=== PATIENT | female | born 1995 | race Caucasian/White ===

== ENCOUNTER 2016-08-31 19:06 | Emergency (ER) | payer OTHER ==
--- NOTE | 2016-08-31 21:06 | ER Document Report ---
HPI - HPI Pain Level: 4 Notes: Patient is a 20-year-old female presents to the ED complaining of right great toe pain status post crush injury today while at work. Patient states that she dropped a case of red bull on the right great toe this afternoon. Patient states she has noticed swelling and bruising to the area along with pain. Patient states that she does have difficulty with flexion of that toe, but continues to have sensation and feeling in the toe itself. The pain does not radiate. She has not had anything for discomfort. Patient still able to ambulate but does favor that side by limping. Denies any fever, chest pain, palpitations, shortness breath, wheezing, shortness of breath, abdominal pain, nausea/vomiting/diarrhea, dysuria, abscess, red streaks, purulent discharge. - ROS Notes: REVIEW OF SYSTEMS: CONSTITUTIONAL : Denies fever, chills, or sweats. Denies recent illness. CARDIOVASCULAR: Denies chest pain. Denies palpitations or racing or irregular heart beat. Denies ankle edema. RESPIRATORY: Denies cough, cold, or chest congestion. Denies shortness of breath, difficulty breathing, or wheezing. GASTROINTESTINAL: Denies abdominal pain or distention. Denies nausea, vomiting , or diarrhea. Denies blood in vomitus, stools, or per rectum. Denies black, tarry stools. Denies constipation. GENITOURINARY: Denies difficulty urinating, painful urination, burning, frequency, blood in urine, or discharge. MUSCULOSKELETAL: see hpi SKIN: Denies rash, lesions or sores. NEUROLOGICAL: Denies confusion or altered mental status. Denies passing out or loss of consciousness. Denies dizziness or lightheadedness. Denies headache. Denies weakness or paralysis or loss of use of either side. Denies problems with gait or speech. Denies sensory loss, numbness, or tingling. ALL OTHER SYSTEMS REVIEWED AND NEGATIVE. Dictation was performed using [employer] voice recognition software - REPRODUCTIVE LMP: 08-27-16 - DERM Skin Color: Normal Past Medical History - Social History Smoking Status: Never Smoker - There is still seems pretty straightforward simple x-rays reviewed workup ringlike Family History: Reviewed & Not Pertinent Patient has suicidal ideation: No Patient has homicidal ideation: No Renal/ Medical History: Denies: Hx Peritoneal Dialysis - Immunizations Hx Diphtheria, Pertussis, Tetanus Vaccination: Yes - not in last 5 years Vertical Provider Document - CONSTITUTIONAL Agree With Documented VS: Yes Notes: PHYSICAL EXAMINATION: GENERAL: Well-appearing, well-nourished and in no acute distress. LUNGS: Breath sounds clear to auscultation bilaterally and equal. No wheezes rales or rhonchi. HEART: Regular rate and rhythm without murmurs, rubs, gallops. Musculoskeletal: Left foot: FROM to passive/active. Strength 5+/5. Non-tender to palp. 2+ pulses. Rt great toe: + ecchymosis, inflammation b/w the MTP and IP joint. + tenderness to palp. LROM to flexion. Sensation intact. Extremities: No cyanosis, clubbing, or edema b/l. Peripheral pulses 2+. Capillary refill less than 3 seconds. NEUROLOGICAL: Normal sensory, motor exams PSYCH: Normal mood, normal affect. SKIN: Warm, Dry, normal turgor, no rashes or lesions noted. - INFECTION CONTROL TRAVEL OUTSIDE OF THE [place] IN LAST 30 DAYS: No - RESPIRATORY O2 Sat by Pulse Oximetry: 95 Course - Re-evaluation Re-evalutation: 08/31/16 21:20 Patient is an afebrile, well-hydrated, 20-year-old female presents the ED with a right great toe contusion status post crush injury. Vitals are stable. PE otherwise unremarkable. X-ray did not show any acute fracture dislocation. Recommend conservative measures for symptoms. Recheck with your PCM in 2-3 days. Consider consult orthopedic/podiatry. Return to the ED with any worsening/concerning symptoms otherwise as reviewed in discharge. Patient is in agreement. Low suspicion for a septic joint, cellulitis, gout, fracture. - Vital Signs Vital signs: Temp Pulse Resp BP Pulse Ox 98.5 F 83 18 127/82 H 95 08/31/16 19:20 08/31/16 19:20 08/31/16 19:20 08/31/16 19:20 08/31/16 19:20 Discharge - Discharge Clinical Impression: Pain of left great toe Condition: Stable Disposition: HOME, SELF-CARE Instructions: Ice & Elevation ([facility]) Additional Instructions: Rest, Ice, Compression, Elevation Tylenol/ibuprofen as needed Light stretches daily Strength exercises as able Moist heat and massage may help F/u with your PCP in 2-3 days for a recheck Consider consult(s) with Orthopedics/podiatry/physical therapy for ongoing/ worsening symptoms Return to the ED with any worsening pain, swelling, numbness/tingling, muscle weakness, development of fever, or any other worsening/concerning symptoms otherwise as needed. Forms: Elevated Blood Pressure Referrals: [facility] [Provider Group] - Follow up as needed
--- NOTE | 2016-08-31 21:14 | RADIOLOGY REPORT (SQ) ---
EXAM DESCRIPTION: TOE RIGHT COMPLETED DATE/TIME: 08/31/2016 9:05 pm REASON FOR STUDY: crush injury rt great toe, b/w MCP/IP jt COMPARISON: None. NUMBER OF VIEWS: Three views. TECHNIQUE: AP, lateral, and oblique images acquired of the right first toe. LIMITATIONS: None. FINDINGS: MINERALIZATION: Normal. BONES: No acute fracture or dislocation. No worrisome bone lesions. JOINTS: No effusions. SOFT TISSUES: No soft tissue swelling. No foreign body. OTHER: No other significant finding. IMPRESSION: NEGATIVE STUDY OF THE RIGHT TOE. NO RADIOGRAPHIC EVIDENCE OF ACUTE INJURY. COMMENT: SITE OF TRAUMA/COMPLAINT MARKED/STAMP COMPLETED: YES. TECHNICAL DOCUMENTATION: JOB ID: [id number] [employer]- All Rights Reserved
[2016-08-31 21:44] VITALS: BP 119/69
== END 2016-08-31 21:42 | disposition home or self-care (01) ==
LOC: ER 19:06
DX: S99.921A Unspecified injury of right foot, initial encounter (principal); W20.8XXA Other cause of strike by thrown, projected or falling object, initial encounter; Y99.0 Civilian activity done for income or pay
CPT/HCPCS: 99283

== ENCOUNTER 2018-06-06 12:10 | Inpatient (IN) | payer MEDICAID ==
[2018-06-06 12:48] LABS: APPEARANCE,URINE TURBID; BILIRUBIN,URINE NEGATIVE (NEGATIVE); COLOR,URINE YELLOW; GLUCOSE, URINE NEGATIVE (NEGATIVE); KETONES,URINE TRACE mg/dL (NEGATIVE); LEUKOCYTE ESTERASE,URINE MODERATE (NEGATIVE); NITRITE,URINE NEGATIVE (NEGATIVE); PROTEIN,URINE 100 mg/dL (NEGATIVE); URINE SPECIFIC GRAVITY 1.012; UROBILINOGEN,URINE NEGATIVE mg/dL (<2.0)
[2018-06-06 13:06] LABS: URINE AMPHETAMINES SCREEN NEGATIVE; URINE BARBITURATES SCREEN NEGATIVE; URINE BENZODIAZEPINES SCREEN NEGATIVE; URINE COCAINE SCREEN NEGATIVE; URINE MARIJUANA (THC) SCREEN NEGATIVE; URINE METHADONE SCREEN NEGATIVE; URINE PHENCYCLIDINE SCREEN NEGATIVE
[2018-06-06 13:44] LABS: ABSOLUTE LYMPHOCYTES (AUTO) 1.7 10^3/uL (0.5-4.7); ABSOLUTE MONOCYTES (AUTO) 0.8 10^3/uL (0.1-1.4); BASOPHILS % (AUTO) 0.1 % (0-2); EOSINOPHILS % (AUTO) 0.1 % (0-6); HEMATOCRIT 40.9 % (36.0-47.0); HEMOGLOBIN 13.9 g/dL (12.0-15.5); LYMPHOCYTES % (AUTO) 10.7 % (13-45); MEAN CORPUSCULAR HGB CONC 33.9 g/dL (32.0-36.0); MEAN CORPUSCULAR VOLUME 91 fl (80-97); PLATELET COUNT 218 10^3/uL (150-450); RED BLOOD COUNT 4.47 10^6/uL (3.72-5.28); RED CELL DISTRIBUTION WIDTH 14.6 % (11.5-14.0); SEGMENTED NEUTROPHILS % (AUTO) 84.1 % (42-78); TOTAL CELLS COUNTED % (AUTO) 100 %; WHITE BLOOD COUNT 15.5 10^3/uL (4.0-10.5)
[2018-06-06] MEDS ORDERED: OXYTOCIN 10 UNIT/ML VIAL ONE (14:13)
[2018-06-06] MEDS ORDERED: MISOPROSTOL 0.2 MG TABLET ONE (14:13)
[2018-06-06] MEDS ORDERED: LIDOCAINE 1.5%/EPINEPHRINE INJ 5 ML AMP ONE (14:14)
[2018-06-06] MEDS ORDERED: FENTANYL/BUPIVACAINE/NS/PF 300 MCG/150 ML RTUINJ EPI ONE (14:14)
[2018-06-06] MEDS ORDERED: EPHEDRINE SULFATE INJ 50 MG/1 ML AMPULE ONE (14:14)
[2018-06-06] MEDS ORDERED: LIDOCAINE 1% INJ-PF (10 MG/ML) 30 ML SDV ONE (14:15)
[2018-06-06] MEDS ORDERED: BUPIVACAINE HCL 0.25 % INJ/PF (2.5 MG/1 ML) 30 ML VIAL ONE (14:15)
[2018-06-06] MEDS ORDERED: OXYTOCIN/NORMAL SALINE 20 UNIT/1,000 ML RTUINJ ONE (14:15)
[2018-06-06] MEDS ORDERED: NALBUPHINE HCL INJ 10 MG/1 ML AMPULE INJ ONE (14:53)
[2018-06-06] MEDS ORDERED: NALBUPHINE HCL INJ 10 MG/1 ML AMPULE ONE (14:54)
--- NOTE | 2018-06-06 15:54 | Admission Physical ---
Datetime Report Generated by CPN: 06/06/2018 15:54 CURRENT ADMISSION Chief Complaint: Uterine Contractions Indication for Induction: Not Applicable Admit Impression : Term, Intrauterine Admit Plan: Initiate Labor Protocol ALLERGIES Medication Allergies: Unknown Medication Allergies: No Known Allergies (06/06/2018) Latex: No Latex Allergies Food Allergies: N/A OBSTETRICAL HISTORY EDC: 06/19/2018 00:00 : 1 Para: 0 Term: 0 : 0 SAB: 0 IAB: 0 Livin Gestational Diabetes: No Rh Sensitization: No Incompetent Cervix: No TAMARA: No Infertility: No ART Treatment: No Uterine Anomaly: No IUGR: No Hx Previous C/S: No Macrosomia: No Hx Loss/Stillborn: No PIH: No Hx : No Placenta Previa/Abruption: No Depression/PP Depression: No PTL/PROM: No Post Hemorrhage: No Current Procedures: Ultrasound Obstetrical History Comments: G1 - Current SEE RECORDS Alcohol: No Marijuana : No Cocaine: No Other Illicit Drugs: No Cigarettes: Never Smoker. [id number] MEDICAL HISTORY Diabetes: No Blood Transfusion: No Pulmonary Disease (Asthma, TB): No Breast Disease: No Hypertension: No Bottom Stainer Surgery: No Heart Disease: No Hosp/Surgery: No Autoimmune Disorder: No Anesthetic Complications: No Kidney Disease: No Abnormal Pap Smear: No Neuro/Epilepsy: No Psychiatric Disorders: No Other Medical Diseases: No Hepatitis/Liver Disease: No Significant Family History: No Varicosities/Phlebitis: No Trauma/Violence : No Thyroid Dysfunction: No INFECTIOUS HISTORY Gonorrhea: No Genital Herpes: No Chlamydia: Yes Tuberculosis: No Syphilis: No Hepatitis: No HIV/AIDS Exposure: No Rash or Viral Illness: No HPV: No Infectious History Comments: Chlamydia in 2018 PHYSICAL EXAM General: Normal HEENT: Normal Neurologic: Normal Thyroid: Normal Heart: Normal Lungs: Normal Breast: Deferred Back: Normal Abdomen: Normal Genitourinary Exam: Normal Extremities: Normal DTRs: Normal Pelvic Type: Adequate FETUS A EGA: 38.1 PLANS FOR LABOR AND DELIVERY Labor and Delivery: None Pain Management: Natural; Epidural Feeding Preference: Breast Benefit of Breast Feed Discussed: Yes Circumcision: Yes INFORMED CONSENT Signature: with User ID: [email or web address]
[2018-06-06] MEDS ORDERED: PROMETHAZINE HCL 25 MG SUPP.RECT PR PRN (17:10)
[2018-06-06] MEDS ORDERED: ACETAMINOPHEN 650 MG SUPP.RECT PR PRN (17:10)
[2018-06-06] MEDS ORDERED: PROMETHAZINE HCL INJ 25 MG/1 ML VIAL IV PRN (17:10)
[2018-06-06] MEDS ORDERED: DIPH/PERTUSS(ACELL)/TETANUS VAC/PF 0.5 ML SYR (>=10YO) IM PRN (17:10)
[2018-06-06] MEDS ORDERED: ZOLPIDEM TARTRATE 5 MG TABLET PO PRN (17:10)
[2018-06-06] MEDS ORDERED: MAGNESIUM HYDROXIDE SUSP 30 ML UDCUP PO PRN (17:10)
[2018-06-06] MEDS ORDERED: OXYTOCIN/NORMAL SALINE 20 UNIT/1,000 ML RTUINJ IV PRN (17:10)
[2018-06-06] MEDS ORDERED: ACETAMINOPHEN WITH CODEINE #3 TABLET PO PRN (17:10)
[2018-06-06] MEDS ORDERED: DIPHENHYDRAMINE HCL 25 MG CAPSULE PO PRN (17:10)
[2018-06-06] MEDS ORDERED: BENZOCAINE/MENTHOL AEROSOL SPRAY 56 ML TOP PRN (17:10)
[2018-06-06] MEDS ORDERED: GLYCERIN/WITCH HAZEL LEAF 1 EACH MED..PAD TP PRN (17:10)
[2018-06-06] MEDS ORDERED: NA PHOS,M-B/NA PHOS,DI-BA (ADULT) 133 ML ENEMA PR PRN (17:10)
[2018-06-06] MEDS ORDERED: PSEUDOEPHEDRINE HCL 30 MG TABLET PO PRN (17:10)
[2018-06-06] MEDS ORDERED: MEASLES,MUMPS&RUBELLA VACC/PF 0.5 ML VIAL SUBCUT PRN (17:10)
[2018-06-06] MEDS ORDERED: DIBUCAINE 1% OINTMENT 56 GM TP PRN (17:10)
[2018-06-06] MEDS ORDERED: PROMETHAZINE HCL 25 MG TABLET PO PRN (17:10)
[2018-06-06] MEDS ORDERED: IBUPROFEN 800 MG TABLET ONE (19:25)
--- NOTE | 2018-06-06 19:39 | Warning Signs in Babies ---
VOD Warning Signs Datetime Report Generated by [facility]: 06/06/2018 19:38 VOD#608 -Warning Signs in Babies: Viewed with Parent(s)/Family (06/06/2018 19:33:Guerda Albarran RN)
--- NOTE | 2018-06-06 19:43 | Delivery Summary ---
Del Sum A-C Datetime Report Generated by CPN: 06/06/2018 19:42 DELIVERY PERSONNEL DELIVERY PERSONNEL: [id number] Delivery Doctor:: Ismael Fan MD Labor and Delivery Nurse:: Ruy Menjivar RN Emissions Testing And Repair Technician:: Danae Olmos RN Nursery Nurse:: Elda Pisano RN Materials Engineer/ANALYSIS OR RESEARCH SAFETY INSPECTOR: [facility] Additional Personnel: : Feli Rich RN MATERNAL INFORMATION Delivery Anesthesia: Epidural Medications After Delivery: Pitocin Bolus-Please Comment; Pitocin Drip 20 Units/1000ml NSS Maternal Complications: Precipitous Labor (<3hrs) LABOR SUMMARY EDC: 06/19/2018 00:00 No. Babies in Womb: 1 Attempted: No Labor Anesthesia: Epidural LABOR INFORMATION Reason for Induction: Not Applicable Onset of Labor: 06/06/2018 14:03 Complete Dilatation: 06/06/2018 16:30 Oxytocin: N/A Group B Beta Strep: Negative MEMBRANES Membranes Rupture Method: Spontaneous Rupture of Membranes: 06/06/2018 06:00 Length of Rupture (hr): 11.00 Amniotic Fluid Color: Clear Amniotic Fluid Amount: Small Amniotic Fluid Odor: Normal STAGES OF LABOR Stage 1 hr: 2 Stage 1 min: 27 Stage 2 hr: 0 Stage 2 min: 30 Stage 3 hr: 0 Stage 3 min: 5 Total Time in Labor hr: 3 Total Time in Labor min: 2 VAGINAL DELIVERY Episiotomy: None Laceration #1: None Laceration Extension #1: N/A Laceration Repair: Not Applicable Sponge Count Correct: N/A Sharps Count Correct: N/A CSECTION DELIVERY Primary Indication: N/A Secondary Indication: N/A CSection Incidence: N/A Labor: N/A Elective: N/A CSection Incision: N/A BABY A INFORMATION Delivery Date/Time: 06/06/2018 17:00 Method of Delivery: Vaginal Born in Route : No : N/A Forceps: N/A Vacuum Extraction: N/A Shoulder Dystocia : No PRESENTATION/POSITION BABY A Presentation: Cephalic Cephalic Presentation: Vertex Vertex Position: Right Occipital Anterior Breech Presentation: N/A PLACENTA INFORMATION BABY A Placenta Delivery Time : 06/06/2018 17:05 Placenta Method of Delivery: Spontaneous Placenta Status: Delivered SCORES BABY A Heart Rate 1 min: >100 bpm Resp Effort 1 min: Good Cry Reflex Irritability 1 min: Cough or Sneeze or Pulls Away Muscle Tone 1 min: Active Motion Color 1 min: Body Tice, Extremities Blue SCORE 1 MIN: 9 Heart Rate 5 min: >100 bpm Resp Effort 5 min: Good Cry Reflex Irritability 5 min: Cough or Sneeze or Pulls Away Muscle Tone 5 min: Active Motion Color 5 min: Body Tice, Extremities Blue SCORE 5 MIN: 9 INFANT INFORMATION BABY A Gestational Age at Delivery: 38.1 Gestational Status: Early Term- 37- 38.6 Weeks Infant Outcome : Liveborn Condition : Stable Infant Sex: Male IDENTIFICATION BABY A Infant Verification Date/Time: 06/06/2018 17:25 ID Band Number: [id number] Mother's Name Verified: Yes RN Verifying Infant: Jarvis Menjivar/Terri Rich WEIGHT/LENGTH BABY A Birthweight (gm): 3327 Infant Weight (lb): 7 Weight (oz): 5 Infant Length (in): 19.50 Infant Length (cm): 49.53 CORD INFORMATION BABY A No. Cord Vessels: 3 Nuchal Cord : N/A Cord Blood Taken: Yes-For Eval (Mom's Blood Type - or O+) Suction: None ASSESSMENT BABY A Skin to Skin: Yes Skin to Skin Time (min): 60 SIGNATURES Signature: with User ID: [email or web address]
[2018-06-06] MEDS: IBUPROFEN 800 MG TABLET PO SCH (21:26)
[2018-06-06] MEDS: FAMOTIDINE 20 MG TABLET PO SCH (22:37)
[2018-06-07] MEDS: DOCUSATE SODIUM 100 MG CAPSULE PO SCH ×3 (00:38→17:46)
[2018-06-07] MEDS: FERROUS SULFATE 325 MG TABLET PO SCH ×3 (00:38→17:46)
[2018-06-07] MEDS: IBUPROFEN 800 MG TABLET PO SCH ×3 (05:56→22:34)
[2018-06-07 07:34] LABS: HEMATOCRIT 34.5 % (36.0-47.0); HEMOGLOBIN 11.9 g/dL (12.0-15.5); MEAN CORPUSCULAR HEMOGLOBIN 31.2 pg (27.0-33.4); MEAN CORPUSCULAR HGB CONC 34.5 g/dL (32.0-36.0); MEAN CORPUSCULAR VOLUME 91 fl (80-97); PLATELET COUNT 173 10^3/uL (150-450); RED BLOOD COUNT 3.81 10^6/uL (3.72-5.28); RED CELL DISTRIBUTION WIDTH 14.1 % (11.5-14.0); WHITE BLOOD COUNT 17.6 10^3/uL (4.0-10.5)
--- NOTE | 2018-06-07 10:48 | PDOC PROGRESS REPORT ---
Subjective-OB Progress Note for:: 06/07/18 Subjective: Pt doing well, no concerns. She reports light bleeding, reg diet and voiding without difficulty. Physical Exam (OB) Vital Signs: Temp Pulse Resp BP Pulse Ox 97.9 F 64 16 120/81 99 06/07/18 07:45 06/07/18 07:45 06/07/18 07:45 06/07/18 07:45 06/07/18 07:45 Intake & Output 06/06/18 06/07/18 06/08/18 06:59 06:59 06:59 Weight 76 kg - Lochia Lochia Amount: Scant < 10 ml Lochia Color: Rubra/Red - Abdomen Description: Soft, Round Hernia Present: No Fundal Description: Firm Fundal Height: u/u - u/2 Objective-Diagnostic Laboratory: 06/07/18 06:59 06/06/18 06/06/18 06/06/18 12:14 13:29 13:29 WBC 15.5 H RBC 4.47 Hgb 13.9 Hct 40.9 MCV 91 MCH 31.0 MCHC 33.9 RDW 14.6 H Plt Count 218 Seg Neutrophils % 84.1 H Lymphocytes % 10.7 L Monocytes % 5.0 Eosinophils % 0.1 Basophils % 0.1 Absolute Neutrophils 13.0 H Absolute Lymphocytes 1.7 Absolute Monocytes 0.8 Absolute Eosinophils 0.0 Absolute Basophils 0.0 Urine Color YELLOW Urine Appearance TURBID Urine pH 7.0 Ur Specific [place] 1.012 Urine Protein 100 H Urine Glucose (UA) NEGATIVE Urine Ketones TRACE H Urine Blood LARGE H Urine Nitrite NEGATIVE Ur Leukocyte Esterase MODERATE H Blood Type O POSITIVE Antibody Screen NEGATIVE 06/07/18 06:59 WBC 17.6 H RBC 3.81 Hgb 11.9 L Hct 34.5 L MCV 91 MCH 31.2 MCHC 34.5 RDW 14.1 H Plt Count 173 Seg Neutrophils % Lymphocytes % Monocytes % Eosinophils % Basophils % Absolute Neutrophils Absolute Lymphocytes Absolute Monocytes Absolute Eosinophils Absolute Basophils Urine Color Urine Appearance Urine pH Ur Specific [place] Urine Protein Urine Glucose (UA) Urine Ketones Urine Blood Urine Nitrite Ur Leukocyte Esterase Blood Type Antibody Screen Assessment and Plan(PN) - Assessment and Plan (1) Labor, precipitous, delivered Is this a current diagnosis for this admission?: Yes (2) Vaginal delivery Is this a current diagnosis for this admission?: Yes - Time Spent with Patient Time with patient: Less than 15 minutes Medications reviewed and adjusted accordingly: Yes - Disposition Anticipated Discharge: Home Within: within 24 hours
[2018-06-07] MEDS: FAMOTIDINE 20 MG TABLET PO SCH ×2 (11:11→22:34)
[2018-06-07] MEDS: PRENATAL VITAMIN W DHA CAPSULE PO SCH (11:11)
[2018-06-07] MEDS: SENNOSIDES/DOCUSATE 8.6-50 MG 1 EACH TABLET PO SCH (11:12)
[2018-06-08] MEDS: IBUPROFEN 800 MG TABLET PO SCH (05:47)
--- NOTE | 2018-06-08 08:26 | PDOC DISCHARGE SUMMARY ---
Final Diagnosis Discharge Date: 06/08/18 - Final Diagnosis (1) Labor, precipitous, delivered Is this a current diagnosis for this admission?: Yes (2) Vaginal delivery Is this a current diagnosis for this admission?: Yes Discharge Data - Discharge Medication Home Medications: No122/Iron/Folic Acid [ Multi Tablet] 1 each PO DAILY 06/06/18 Reason(s) for Admission: Onset of Labor Procedures: NST Intrapartum Procedure(s): Spontaneous Vaginal Delivery - Diagnosis Test Laboratory: Temp Pulse Resp BP Pulse Ox 98.8 F 76 16 117/77 96 06/08/18 07:56 06/08/18 07:56 06/08/18 07:56 06/08/18 07:56 06/08/18 07:56 06/06/18 06/06/18 06/07/18 12:14 13:29 06:59 RBC 4.47 3.81 Hgb 13.9 11.9 L Hct 40.9 34.5 L Urine Opiates Screen NEGATIVE - Discharge information/Instructions Discharge Activity: Balance Activity w/Rest, Pelvic Rest Discharge Diet: Regular Disposition: HOME, SELF-CARE Follow [facility] with: [facility] in: 4, Weeks
[2018-06-08 10:18] VITALS: BP 117/74
[2018-06-08] MEDS: FERROUS SULFATE 325 MG TABLET PO SCH (10:29)
[2018-06-08] MEDS: PRENATAL VITAMIN W DHA CAPSULE PO SCH (10:29)
[2018-06-08] MEDS: DOCUSATE SODIUM 100 MG CAPSULE PO SCH (10:29)
[2018-06-08] MEDS: SENNOSIDES/DOCUSATE 8.6-50 MG 1 EACH TABLET PO SCH (10:29)
[2018-06-08] MEDS: FAMOTIDINE 20 MG TABLET PO SCH (10:29)
== END 2018-06-08 13:23 | disposition home or self-care (01) | DRG 807 ==
LOC: LC 12:10 → LR 12:59 → 2S 20:27
PROVIDERS: ADMIT Obstetrics & Gynecology Gynecology; ATTEND Obstetrics & Gynecology Gynecology
PROC: 10E0XZZ Delivery of Products of Conception, External Approach (ICD-10-PCS; principal; 2018-06-06)
DX: O62.3 Precipitate labor (principal); Z37.0 Single live birth; Z3A.38 38 weeks gestation of pregnancy
CPT/HCPCS: 36415; 80307; 81005; 84112; 85025; 85027; 86592; 86850; 86900; 86901; 94760; J2300; J2590; J3010; J3490

== ENCOUNTER 2018-07-23 23:44 | Emergency (ER) | payer MEDICAID ==
[2018-07-24] MEDS ORDERED: IBUPROFEN 600 MG TABLET PO ONE (00:29)
--- NOTE | 2018-07-24 00:35 | ER Document Report ---
ED Oral Problem - General Chief Complaint: Toothache Stated Complaint: FACIAL SWELLING/POSSIBLE INFECTED TOOTH Time Seen by Provider: 07/24/18 00:18 Mode of Arrival: Ambulatory Information source: Patient Notes: 22-year-old female presented to ED for dental pain and swelling to the left side of her lower jaw. She states that the pain is been off and on for a month or more but the severe pain and swelling started 2 days ago and these swelling became much worse today. Patient is alert oriented respirations regular and unlabored speaking in full sentences. She states she is not gone to the dentist because she does not have dental insurance. She states she is 2 months when her [employer] started her on the minipill 2 weeks ago. She states she has not had a menstrual cycle since her childbirth but she is breast-feeding her infant. TRAVEL OUTSIDE OF THE [place] 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 - Related Data Allergies/Adverse Reactions: No Known Allergies Allergy (Verified 07/24/18 00:06) Past Medical History - General Information source: Patient - Social History Smoking Status: Never Smoker Frequency of alcohol use: None Drug Abuse: None Lives with: Family Family History: Reviewed & Not Pertinent - Past Medical History Cardiac Medical History: Reports: None Pulmonary Medical History: Reports: None EENT Medical History: Reports: None Neurological Medical History: Reports: None Endocrine Medical History: Reports: None Renal/ Medical History: Reports: None Malignancy Medical History: Reports: None GI Medical History: Reports: None Musculoskeletal Medical History: Reports None Skin Medical History: Reports None Psychiatric Medical History: Reports: None Traumatic Medical History: Reports: None Infectious Medical History: Reports: None Surgical Hx: Negative Past Surgical History: Reports: None - Immunizations Hx Diphtheria, Pertussis, Tetanus Vaccination: Yes - not in last 5 years Review of Systems - Review of Systems Constitutional: No symptoms reported EENT: Mouth pain, Mouth swelling, Dental problem Cardiovascular: No symptoms reported Respiratory: No symptoms reported Gastrointestinal: No symptoms reported Genitourinary: No symptoms reported Female Genitourinary: No symptoms reported Musculoskeletal: No symptoms reported Skin: No symptoms reported Hematologic/Lymphatic: No symptoms reported Neurological/Psychological: No symptoms reported -: Yes All other systems reviewed and negative Physical Exam - Vital signs Vitals: Temp Pulse Resp BP Pulse Ox 98.4 F 100 16 128/84 H 96 07/24/18 00:11 07/24/18 00:11 07/24/18 00:11 07/24/18 00:07/24/18 00:11 Interpretation: Normal - General General appearance: Appears well, Alert - HEENT Head: Normocephalic, Atraumatic Eyes: Normal Pupils: PERRL Ears: Normal External canal: Normal Tympanic membrane: Normal Sinus: Normal Nasal: Normal Mouth/Lips: Caries Teeth diagram: 1 - Dental abscess 2 - Swelling to the left lower mandible no signs or symptoms of Jordan's angina mostly dental abscess and swelling Pharynx: Normal Neck: Anterior cervical chain - Respiratory Respiratory status: No respiratory distress Chest status: Nontender Breath sounds: Normal Chest palpation: Normal - Cardiovascular Rhythm: Regular Heart sounds: Normal auscultation Murmur: No - Abdominal Inspection: Normal Distension: No distension Bowel sounds: Normal Tenderness: Nontender Organomegaly: No organomegaly - Back Back: Normal, Nontender - Extremities General upper extremity: Normal inspection, Nontender, Normal color, Normal ROM, Normal temperature General lower extremity: Normal inspection, Nontender, Normal color, Normal ROM, Normal temperature, Normal weight bearing. No: Charito's sign - Neurological Neuro grossly intact: Yes Cognition: Normal Orientation: AAOx4 [place] Coma Scale Eye Opening: Spontaneous Janeen Coma Scale Verbal: Oriented Janeen Coma Scale Motor: Obeys Commands [place] Coma Scale Total: 15 Speech: Normal Motor strength normal: LUE, RUE, LLE, RLE Sensory: Normal - Psychological Associated symptoms: Normal affect, Normal mood - Skin Skin Temperature: Warm Skin Moisture: Dry Skin Color: Normal Course - Re-evaluation Re-evalutation: 07/24/18 00:46 Patient was treated with Rocephin 1 g IM and ibuprofen for her pain and swelling to the left lower jaw from a dental infection. She has a small dental abscess that was opened with a 11 blade. Patient was encouraged to gargle with warm water after the incision of the abscess. Patient was given a 20 cc syringe of viscous lidocaine to use topically for the dental pain. Patient was written a prescription for penicillin VK and instructed to follow-up with dentist as soon as possible. Patient to use dark penicillin in the morning. Patient is 2 months and has not started her period since her childbirth. She states she started the minipill 2 weeks ago. 07/24/18 00:57 - Vital Signs Vital signs: Temp Pulse Resp BP Pulse Ox 99.4 F 87 16 113/66 96 07/24/18 01:22 07/24/18 01:22 07/24/18 00:11 07/24/18 01:22 07/24/18 01:22 Discharge - Discharge Clinical Impression: Pain due to dental caries, Dental abscess Condition: Stable Disposition: HOME, SELF-CARE Instructions: Dentist Additional Instructions: TOOTHACHE: Your pain is due to dental decay. The tooth must be repaired in order for you to feel better. You will, therefore, be referred to a dentist. We do not have dentists on the staff at [facility]. Severe swelling or drainage around a tooth usually means a dental abscess. This also requires evaluation and treatment by the dentist, but antibiotics may be prescribed while awaiting dental treatment. You should be rechecked immediately if you develop major swelling of the face, increasing pain, a lump in the jaw or gums, headache, difficulty swallowing, or fever. Rocephin You have been given an injection of an antibiotic called Rocephin (ceftriaxone). Sometimes the injection must be combined with antibiotic pills. For some infections, such as an uncomplicated ear infection, Rocephin provides all the antibiotic that's needed. The antibiotic will be in your body for about two days. For serious infections, we usually repeat doses of Rocephin daily. Side effects are very unusual following a shot. Women may develop vaginal yeast infections, and babies can get yeast (thrush) in the mouth following the use of antibiotics. Contact your physician if you have symptoms with this medication. Allergy to this antibiotic can result in hives, wheezing, faintness, or itching. If symptoms of allergy occur, call the doctor at once. ORAL NARCOTIC MEDICATION: You have been given a [place] dispense pack for pain control. This medication is a narcotic. It's best taken with food, as nausea can result if taken on an empty stomach. Don't operate machinery or drive within six hours of taking this medication. Do not combine this medicine with alcohol, or with any medication which can cause sedation (such as cold tablets or sleeping pills) unless you get permission from the physician. Narcotics tend to cause constipation. If possible, drink plenty of fluids and eat a diet high in fiber and fruits. Please be aware that prescription narcotics also have the potential for abuse. People become addicted to these medications because of the general sense of wellbeing that they induce. This feeling along with a significant reduction in tension, anxiety, and aggression provides a stimulating seductive quality to these drugs. Once your pain is under control, we encourage you to discard your unused narcotics. PENICILLIN V K: You have been given a prescription for Penicillin VK. Your physician has determined that this is the best antibiotic for your condition. Pen VK can be taken with meals, however more of the antibiotic gets into the bloodstream if it's taken on an empty stomach. Penicillin usually has no side effects. However, allergy to penicillins is common. If you have had an allergic reaction to any drug of the penicillin family, you should never take any other penicillin. Notify your doctor at once if you develop hives, itching, swelling, faintness, or shortness of breath. Salt and soda solution 1 quart of water 1 tablespoon of salt 1 teaspoon of baking soda Mixed 3 ingredients together and boil for 1 minute Placed in a covered quart jar Use 1/2 ounce of room temperature solution to gargle 3 times a day FOLLOW-UP CARE: You have been referred for follow-up care to the dentists listed below. Call the dentists office for an appointment as you were instructed or within the next two days. If you experience worsening or a significant change in your symptoms, notify the physician immediately or return to the Emergency Department at any time for re-evaluation. [facility] [address] [facility] [place] [id number] [place] [address] [facility] [address] [facility] [place] [address] [facility] [address] [email or web address] [address] [place] [address] Saturday- 8:00am to 5:00 pm Will see patients from other [facility]. Charges based on income and family size and accepts Medicare, Medicaid, and Insurances Will pull molars [facility] [id number] Hours of Operation 8:00 am - 4:30 pm weekdays The following dental offices accept Medicaid: [facility] [address]. [place] Dr. Farah Dr. Gorman Dr. Saldivar Pascual Rader, [place], and [place] oral surgery Dr. Wilkins ([place]) Dr. Fagan ([place]) [facility] Drs. Villalobos ([place]) Dr. Lobato ([place]) [facility] Dr. Saini ([place]) Drs. Murray and ([place]) Medicaid Care Line Prescriptions: Penicillin V Potassium [Penicillin Vk 500 mg Tablet] 500 mg PO BID #20 tablet
[2018-07-24] MEDS ORDERED: LIDOCAINE 1% INJ-PF (10 MG/ML) 30 ML SDV INJ ONE (00:43)
[2018-07-24] MEDS ORDERED: CEFTRIAXONE INJ 1000 MG VIAL IM ONE (00:43)
[2018-07-24] MEDS ORDERED: LIDOCAINE 2% VISCOUS SOLN 20 ML UDCUP PO ONE (00:44)
[2018-07-24] MEDS ORDERED: HYDROCODONE/ACETAMINOPHEN 5-325 MG (6 TAB/ER DISP) PO PRN (00:50)
[2018-07-24 01:28] VITALS: BP 113/66
== END 2018-07-24 01:28 | disposition home or self-care (01) ==
LOC: ER 23:44
DX: K04.7 Periapical abscess without sinus (principal); K02.9 Dental caries, unspecified
CPT/HCPCS: 99282; 96372; 41800; J3490 ×3; J0696